=== PATIENT | female | born 1975 | race Caucasian/White ===

== ENCOUNTER 2019-09-01 11:02 | Outpatient (CLI) | payer BC, SELFPAY ==
--- NOTE | 2019-09-01 | XR_ITS ---
WS: [id number] HAND RIGHT TECHNIQUE: 3 views of the right hand CLINICAL INFORMATION: FT FELL A FEW WEKES AGO, CAUGHT HERSELF WITH HAND; HAND PAIN COMPARISON: None. FINDINGS: Normal metacarpals. Normal MCP joint. Metacarpal heads are normal in appearance. Normal PIP and DIP j oints. No evidence of acute fracture or dislocation. Radiocarpal joint: Normal. Carpal bones: Normal. XR/XR hand RT min 3V* [id number] IMPRESSION: Normal right hand.
== END 2019-09-01 11:03 | disposition home or self-care (01) ==
LOC: RADOUTREAD 13:17
PROVIDERS: Family Provider Nurse Practitioner Family; PCP Nurse Practitioner Family; Visit Provider Nurse Practitioner Family
DX: Z76.89 Persons encountering health services in other specified circumstances (principal)

== ENCOUNTER 2020-11-27 15:02 | Outpatient (CLI) | payer OTHER, SELFPAY ==
--- NOTE | 2020-11-27 15:09 | MR_ITS ---
WS: [id number] MRI THORACIC SPINE WITHOUT CONTRAST TECHNIQUE: Sagittal T1, T2 and STIR imaging. Axial T2 imaging. Noncontrast imaging obtained. CLINICAL INFORMATION: LOW BACK PAIN W/RADIATION COMPARISON: None. FINDINGS: Mild thoracic kyphosis. Mild thoracic curve. Minimal chronic anterior wedging in the mid thoracic spi ne with Schmorl's nodes. No acute compression fractures. Cord signal is normal. No high-grade central canal stenosis. Small central disc protrusion with slight contact of the thoracic cord at T7-8. Moderate facet arthro staci in the lower thoracic spine. Tiny central disc protrusion T8-T9. Normal caliber thoracic aorta. Adrenal glands are normal. MR/MR thoracic spin wo con* [id number] IMPRESSION: 1. Mild thoracic kyphosis. No acute compression fractures. 2. Mild chronic anterior wedging in the mid thoracic spine with endplate Schmo rl's nodes. 3. Small central disc protrusion T7-T8 with slight contact of the thoracic cor d. No significant central canal stenosis. 4. Moderate facet arthropathy in the lower thoracic spine.
== END 2020-11-27 15:03 | disposition home or self-care (01) ==
PROVIDERS: Family Provider Nurse Practitioner Family; PCP Nurse Practitioner Family; Visit Provider Family Medicine
DX: M54.16 Radiculopathy, lumbar region (principal); M40.204 Unspecified kyphosis, thoracic region; M47.814 Spondylosis without myelopathy or radiculopathy, thoracic region; M51.24 Other intervertebral disc displacement, thoracic region; M48.54XA Collapsed vertebra, not elsewhere classified, thoracic region, initial encounter for fracture
CPT/HCPCS: 72146

== ENCOUNTER 2020-12-07 13:32 | Outpatient (CLI) | payer OTHER, SELFPAY ==
--- NOTE | 2020-12-07 13:35 | MR_ITS ---
WS: [id number] MRI LUMBAR SPINE NONCONTRAST HISTORY: LOW BACK PAIN W/RADIATION COMPARISON: None available. TECHNIQUE: Sagittal and axial multisequence imaging is submitted. Normal lumbar alignment with no compression fractures or marrow edema. Disc spaces and vertebral body heights are well-preserved. Conus terminates normally at L1. L1-L2: Normal. L2-L3: Very mild narrowing of the RIGHT foramen. No significant stenosis. L3-L4: Mild annular disc bulging with moderate facet and ligamentum flavum arthritis. Mild bilateral foraminal stenosis, LEFT greater than RIGHT. L4-L5: Moderate diffuse annular disc bulging with ligamentum flavum hypertrophy and facet arthritis. Mild RIGHT and mild to moderate LEFT foraminal stenosis due to combination of disc and facet disease. L5-S1: Broad-based LEFT subarticular and foraminal disc protrusion contacting the LEFT S1 nerve root but no displacement. Moderate amount of marrow edema in the pedicles and lamina of L3, L4 and L5. Most significant amount involving the L3, L4 and L5 and more significant on the RIGHT than the LEFT. Mild interspinous ligame nt edema at the same levels. MR/MR lumbar spine wo con* [id number] IMPRESSION: 1. Bilateral marrow edema in the articular facets of L3, L4 and L5, greatest o n the RIGHT. Additional edema within the interspinous ligaments. 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 2. Broad-based LEFT subarticular and foraminal disc protrusion at L5-S1 contac ting the S1 nerve root. 3. Mild RIGHT with mild to moderate LEFT foraminal stenosis at L4-5 due to com bination of disc disease and facet arthritis. 4. Mild bilateral foraminal stenosis, LEFT greater than RIGHT at L3-4.
== END 2020-12-07 13:33 | disposition home or self-care (01) ==
LOC: RADSHAW 13:33
PROVIDERS: Family Provider Nurse Practitioner Family; PCP Nurse Practitioner Family; Visit Provider Family Medicine
DX: M54.16 Radiculopathy, lumbar region (principal); M48.061 Spinal stenosis, lumbar region without neurogenic claudication; M51.36 Other intervertebral disc degeneration, lumbar region; M51.27 Other intervertebral disc displacement, lumbosacral region; R60.0 Localized edema
CPT/HCPCS: 72148

== ENCOUNTER → 2021-01-04 11:17 | Outpatient (BNVA) | payer OTHER, SELFPAY | PROVIDERS: Family Provider Nurse Practitioner Family; PCP Nurse Practitioner Family; Referring Provider Family Medicine; Visit Provider Orthopaedic Surgery | DX: M54.9 Dorsalgia, unspecified (principal); M48.062 Spinal stenosis, lumbar region with neurogenic claudication | CPT/HCPCS: 72120 ==

== ENCOUNTER → 2021-01-16 08:38 | Outpatient (BNVA) | payer OTHER, SELFPAY | PROVIDERS: Family Provider Nurse Practitioner Family; PCP Family Medicine; Referring Provider Orthopaedic Surgery; Visit Provider Anesthesiology Pain Medicine | DX: M48.062 Spinal stenosis, lumbar region with neurogenic claudication (principal); M47.816 Spondylosis without myelopathy or radiculopathy, lumbar region; M47.814 Spondylosis without myelopathy or radiculopathy, thoracic region; M51.16 Intervertebral disc disorders with radiculopathy, lumbar region; F17.210 Nicotine dependence, cigarettes, uncomplicated; Z79.891 Long term (current) use of opiate analgesic | CPT/HCPCS: 99205 ==

== ENCOUNTER 2021-12-27 15:00 | Outpatient (CLI) | payer OTHER, SELFPAY ==
--- NOTE | 2021-12-27 15:14 | MM_ITS ---
WS: [id number] BILATERAL SCREENING DIGITAL BREAST TOMOSYNTHESIS MAMMOGRAM WITH CAD HISTORY: SCREENING COMPARISON: None available. Bilateral CC and MLO views with tomosynthesis and synthetic mammography submitted. Computer aided det ection analyzed. Breast composition: There are scattered areas of fibroglandular density. No suspicious masses, microc alcifications or architectural distortion. MM/[place] [id number] IMPRESSION: BI-RADS: 1-Negative FOLLOW UP: 1 Year Follow-up
== END 2021-12-27 15:01 | disposition home or self-care (01) ==
PROVIDERS: PCP Family Medicine; Visit Provider Family Medicine
DX: Z12.31 Encounter for screening mammogram for malignant neoplasm of breast (principal)
CPT/HCPCS: 77063; 77067

== ENCOUNTER 2022-05-29 14:45 | Outpatient (CLI) | payer OTHER, MEDICAID, SELFPAY ==
--- NOTE | 2022-05-29 | XR_ITS ---
WS: [id number] KUB, AP view, 05/29/2022 Clinical Data: CONSTIPATION Comparison: None. Findings: No abnormal intraabdominal calcifications are seen. There is no dilatated small bowel or evidence of obstruction. The liver may be enlarged. XR/XR KUB [id number] Impression: Possible hepatomegaly.
--- NOTE | 2022-05-29 | XR_ITS ---
WS: [id number] Chest 2 views, 05/29/2022 Clinical Data: COUGH, FEVER Comparison: Portable chest, 06/11/2017. Findings: No nodules, masses or effusions are seen. The heart is normal. The pulmonary vascularity is not increased. No pneumonia or pneumothorax is seen. XR/XR chest 2V* [id number] Impression: Negative chest.
== END 2022-05-29 14:46 | disposition home or self-care (01) ==
LOC: RAD 14:48
PROVIDERS: PCP Family Medicine; Visit Provider Nurse Practitioner Family
DX: K59.00 Constipation, unspecified (principal); R50.9 Fever, unspecified; R05.9 Cough, unspecified
CPT/HCPCS: 71046; 74018

== ENCOUNTER 2023-06-08 13:20 | Outpatient (CLI) | payer OTHER, MEDICAID, SELFPAY ==
--- NOTE | 2023-06-08 | XRR_ITS ---
PROCEDURE INFORMATION: Exam: XR Lumbosacral Spine Exam date and time: 06/08/2023 1:34 PM Age: 48 years old Clinical indication: Low back pain; Patient HX: Please comment on presence or absence of stability TECHNIQUE: Imaging protocol: Radiologic exam of the lumbosacral spine. Views: 6 or more views. Including flexion and extension views. COMPARISON: CR XR lumbar spine f/e only [id number] 01/04/2021 11:24 AM FINDINGS: Bones/joints: Mild apex rightward mid lumbar curvature. Substantial facet hypertrophy L3-L4 through L5-S1. There is now a 7 mm anterolisthesis at L4-L5 which does not change between flexion and extension. Degenerative disc disease L3-L4, L4-L5, L5-S1. Soft tissues: Unremarkable. XR/XR lumbar spine 6V w f/e [id number] IMPRESSION: No segmental instability. Anterolisthesis at L4-L5 has increased in comparison to the prior study. Lower lumbar degenerative disc disease and, most prominently, facet arthropathy.
== END 2023-06-08 13:21 | disposition home or self-care (01) ==
PROVIDERS: PCP Family Medicine; Visit Provider Anesthesiology Pain Medicine
DX: M51.37 Other intervertebral disc degeneration, lumbosacral region (principal); M47.816 Spondylosis without myelopathy or radiculopathy, lumbar region
CPT/HCPCS: 72114

== ENCOUNTER 2023-09-02 15:56 | Outpatient (CLI) | payer OTHER, MEDICAID, SELFPAY ==
--- NOTE | 2023-09-02 16:04 | MR_ITS ---
WS: [id number] MRI LUMBAR SPINE NONCONTRAST HISTORY: VERTEBROGENIC LOW BACK PAIN COMPARISON: 12/07/2020 TECHNIQUE: Sagittal and axial multisequence imaging is submitted. Cervical osteophytes and disc disease at C5-6 and C6-7. There are several Schmorl's nodes within the mid to lower thoracic spine. L4 anterolisthesis by 5.1 mm is new since 12/07/2020. No acute compression fractures. Reidentified is marrow edema in the posterior elements of L4 and L5 bilaterally and on the LEFT of L3. Similar findin gs were noted on the prior examination. Disc spaces are very mildly desiccated without narrowing. Conus terminates normally at L1. L1-L2: Mild annular disc bulging with mild encroachment upon the neural foramina. No high-grade steno sis. L2-L3: Mild annular disc bulging with mild ligamentum flavum and facet arthritis. Mild bilateral suba rticular recess encroachment. Minimal RIGHT foraminal narrowing. There is progression of facet joint arthritis and subarticular recess encroachment. L3-L4: Diffuse annular disc bulging encroaching upon the ventral thecal sac and the subarticular rece sses. Mild central, bilateral subarticular recess and foraminal stenosis. L4-L5: Mild unroofing of the disc due to anterolisthesis of L4. Moderate ligamentum flavum and facet joint arthritis. Facet joint arthritis has progressed since the prior study. There is disc encroachme nt upon the ventral thecal sac and the traversing L5 nerve roots. Moderate RIGHT and mild LEFT forami nal stenosis. L5-S1: Mild disc bulging with a central disc protrusion. Disc contacts the traversing S1 nerve roots with no displacement. No significant stenosis. Facet joint synovitis noted from L3-4 through L5-S1. There is fluid and small facet joint cysts and e eun within the interspinous ligaments. The most significant changes are on the RIGHT at L4-5 and L5- S1. IMPRESSION: 1. New L4 anterolisthesis by 5.1 mm. 2. Very mild progression of degenerative disc and facet disease throughout the lumbar spine. 3. L4-5: Advanced facet joint arthritis at L4-5. Mild central and subarticular recess stenosis. Disc encroaching upon the traversing L5 nerve roots. Moderate RIGHT and mild LEFT foraminal stenosis. 4. L2-3: Mild bilateral subarticular recess and RIGHT foraminal stenosis. 5. L3-4: Mild central, bilateral subarticular recess and foraminal stenosis. 6. L5-S1: Shallow central disc protrusion contacting the traversing S1 nerve roots without displacem ent. 7. Marrow edema and synovitis from L3-S1. Marrow edema within the posterior elements was also descri bed on the prior examination with no improvement. Additional edema in the interspinous ligaments.
== END 2023-09-02 15:57 | disposition home or self-care (01) ==
LOC: RAD 15:56
PROVIDERS: PCP Family Medicine; Visit Provider Anesthesiology Pain Medicine
DX: M51.27 Other intervertebral disc displacement, lumbosacral region (principal); M51.37 Other intervertebral disc degeneration, lumbosacral region; M65.88 Other synovitis and tenosynovitis, other site; M47.816 Spondylosis without myelopathy or radiculopathy, lumbar region; M48.061 Spinal stenosis, lumbar region without neurogenic claudication
CPT/HCPCS: 72148